=== PATIENT | male | born 1985 | race Caucasian/White ===

== ENCOUNTER 2017-06-21 09:11 | Emergency (ER) | payer SELFPAY, OTHER ==
[2017-06-21] MEDS: HYDROCODONE/APAP (5/325) TAB PO (10:39)
== END 2017-06-21 12:21 | disposition home or self-care (01) ==
LOC: FTE 09:11
DX: S61.211A Laceration without foreign body of left index finger without damage to nail, initial encounter (principal); W27.0XXA Contact with workbench tool, initial encounter; Y92.9 Unspecified place or not applicable
CPT/HCPCS: 29130; 73140; 99283-25

== ENCOUNTER 2017-06-23 06:53 | Emergency (ER) | payer SELFPAY | END 2017-06-23 07:48 | disposition home or self-care (01) | LOC: FTE 06:53 | DX: Z48.01 Encounter for change or removal of surgical wound dressing (principal); Z87.891 Personal history of nicotine dependence | CPT/HCPCS: 99281 ==